=== PATIENT | male | born 1955 | race Hispanic/Latino ===

== ENCOUNTER 2018-07-28 15:33 | Emergency (ER) | payer OTHER ==
[~2018-07-28 15:33] MED LIST: ISOVUE-370 76%-LOCM 1 ML ONE
[2018-07-28 16:42] LABS: #Basophils 0.1 thou/uL (0.0-0.2); #Eosinphils 0.1 thou/uL (0.0-0.7); #Lymphocytes 1.9 thou/uL (1.20-3.40); #Monocytes 0.5 thou/uL (0.11-0.59); #Neutrophils 5.3 thou/uL (1.40-6.50); %Eosinophils 1.1 % (0.0-10.0); %Lymphocytes 24.5 % (21.0-51.0); %Monocytes 5.8 % (0.0-10.0); %Neutrophils 67.7 % (42.0-75.0); Hemoglobin 18.2 g/dL (14.0-18.0); Mean Corpuscular Hemoglobin 30.9 pg (27.0-31.0); Mean Corpuscular Volume 90.9 fL (78.0-98.0); Mean Platelet Volume 7.9 fL (7.4-10.4); Platelet Count 202 thou/uL (130-400); RBC Distribution Width 12.2 % (11.5-14.5); Red Blood Cell (RBC) Count 5.89 mill/uL (4.70-6.10); White Blood Cell (WBC) Count 7.9 thou/uL (4.8-10.8)
[2018-07-28] MEDS ORDERED: Ondansetron PF 4 MG/2 ML Vial ONE (16:42)
[2018-07-28] MEDS ORDERED: Morphine 4 MG/ML VIAL ONE (16:45)
[2018-07-28 16:56] LABS: ALT (SGPT) 26 U/L (8-55); AST (SGOT) 21 U/L (5-34); Albumin 4.2 g/dL (3.4-4.8); Alkaline Phosphatase 94 U/L (40-150); Anion Gap 11 mmol/L (10-20); BUN (Urea Nitrogen) 10 mg/dL (8.4-25.7); Bilirubin, Total 1.3 mg/dL (0.2-1.2); Calc. Creatinine Clearance 0 mL/min (70-130); Calcium 9.6 mg/dL (7.8-10.44); Carbon Dioxide 28 mmol/L (23-31); Chloride 98 mmol/L (98-107); Estimated GFR-MDRD Greater than 90; Globulin 3.4 g/dL (2.4-3.5); Glucose 204 mg/dL (80-115); Potassium 3.6 mmol/L (3.5-5.1); Protein, Total 7.6 g/dL (5.8-8.1); Sodium 133 mmol/L (136-145)
--- NOTE | 2018-07-28 17:18 | CT ---
CT ANGIOGRAM CHEST WITH CONTRAST CT ANGIOGRAM ABDOMEN WITH CONTRAST: Date: 07/28/18 HISTORY: Chest pain. Back pain. Dissection protocol. COMPARISON: None. TECHNIQUE: CT angiogram of the chest and abdomen performed after the intravenous administration of contrast. 3D rendering provided. FINDINGS: There is no aortic dissection. No aneurysmal dilatation of the aorta. Pulmonary trunk size is normal. No pericardial effusion. Heart size upper limits of normal. Lungs are clear. No pneumothorax. No effusion. No suspicious pulmonary nodule. At L5-S1, there is anterolisthesis, 3 mm, with a broad based posterior disc osteophyte complex. There is also broad based posterior disc osteophyte complex at L4-5 with moderate neural foraminal narrowi ng. Sternum and manubrium are intact. Celiac trunk and superior mesenteric arteries are patent, as well a s the inferior mesenteric artery. There is diffuse hepatic steatosis. The spleen is unremarkable, as well as are the pancreas and gallb ladder. No dilated loops of large or small bowel. The appendix is visualized and is normal. No retroperitoneal adenopathy. IMPRESSION: 1. No evidence for aortic dissection nor aneurysmal dilatation of the aorta. 2. No acute intrathoracic or intra-abdominal abnormality. 3. Diffuse hepatic steatosis. 4. Advanced degenerative changes of the lumbar spine. POS: [facility]
== END 2018-07-28 18:18 | disposition home or self-care (01) ==
LOC: ERS 15:33
DX: M54.5 Low back pain (principal); I10 Essential (primary) hypertension; E11.9 Type 2 diabetes mellitus without complications; E78.5 Hyperlipidemia, unspecified; Z79.4 Long term (current) use of insulin; Z87.891 Personal history of nicotine dependence; Z79.899 Other long term (current) drug therapy
CPT/HCPCS: 71275; 80053; 83605; 84484; 85025; 93005; 96374; 96375; J2270; J2405; J3490; Q9966

== ENCOUNTER 2018-08-13 07:53 | Observation (INO) | payer OTHER ==
--- NOTE | 2018-08-12 14:16 | HP ---
HISTORY OF PRESENT ILLNESS: Mr. Rollins is a pleasant 63-year-old man, who presents for evaluation of profound left lower extremity pain both anterior and posterior, most significant posteriorly in a mostly L5 fashion. He has an MRI from [facility] to reveal severe lateral recess stenosis and foraminal stenosis from L3 all the way down to L5 on the left that would fit the symptoms. He has treated with therapy and medications to no avail and distress to a point where he is willing to pursue anything necessary to rid him of his pain. PAST MEDICAL HISTORY: Significant for hypercholesterolemia, diabetes, and hypertension. PAST SURGICAL HISTORY: No surgical history. MEDICATIONS: 1. Tramadol. 2. Meloxicam. 3. Flexeril. 4. Aspirin. 5. Hydrochlorothiazide. 6. Benazepril. 7. Simvastatin. 8. Metformin. 9. Glyburide. 10. Gabapentin. 11. Tylenol #3. ALLERGIES: NO KNOWN DRUG ALLERGIES. PHYSICAL EXAMINATION: GENERAL: The patient is lying on his back in clinic given the severe pain that he has and he has a positive left straight leg raise. ASSESSMENT: Lumbar radiculopathy. PLAN: Dr. Bass met the patient, reviewed imaging, advocated for left L4-5 decompression. He explained to the patient the risks, benefits, and alternatives to the procedure. The patient expressed understanding and elected to move forward with surgery as discussed. I do believe the patient is mentally competent capable of making medical decisions for himself and we will move forward with surgery as planned. Job ID: [id number]
[2018-08-13] MEDS ORDERED: PROPOFOL 200 MG/20 ML VIAL ONE (10:23)
[2018-08-13] MEDS ORDERED: Lidocaine 1% PF 5 ML VIAL ONE (10:23)
[2018-08-13] MEDS ORDERED: Ondansetron PF 4 MG/2 ML Vial ONE (10:23)
[2018-08-13] MEDS ORDERED: Rocuronium Bromide 10 MG/ML (10ML VIAL) ONE (10:23)
[2018-08-13] MEDS ORDERED: Dexamethasone 20 MG/5 ML VIAL ONE (10:23)
[2018-08-13] MEDS ORDERED: Glycopyrrolate 0.2 MG/ML 5 ML SYRINGE ONE (10:23)
[2018-08-13] MEDS ORDERED: Bupivacaine HCl 0.5%/Epinephrine 1:200,000/PF 30 ml Vial ONE (10:40)
[2018-08-13] MEDS ORDERED: Fentanyl 100 MCG/2 ML VIAL ONE ×3 (11:00→12:58)
[2018-08-13] MEDS ORDERED: Promethazine HCl 25 MG/ML VIAL ONE (12:37)
[2018-08-13] MEDS ORDERED: Cyclobenzaprine 10 MG TAB ONE (15:21)
[2018-08-13] MEDS ORDERED: Morphine 4 MG/ML VIAL SLOW IVP PRN ×2 (16:56→17:03)
[2018-08-13] MEDS ORDERED: Bisacodyl 10 MG SUPP PR PRN (16:56)
[2018-08-13] MEDS ORDERED: diphenhydrAMINE 50 MG/ML VIAL IVP PRN (16:56)
[2018-08-13] MEDS ORDERED: Mag-Al 1200 mg/1200 mg/30 ML UDCUP PO PRN (16:56)
[2018-08-13] MEDS ORDERED: Cyclobenzaprine 10 MG TAB PO PRN (16:56)
[2018-08-13] MEDS ORDERED: Acetaminophen 325 MG TAB PO PRN (16:56)
[2018-08-13] MEDS ORDERED: Acetaminophen/Codeine 30-300mg Tablet PO PRN (16:56)
[2018-08-13] MEDS ORDERED: Acetaminophen 650 MG Suppository PR PRN (16:56)
[2018-08-13] MEDS ORDERED: diphenhydrAMINE 25 MG CAP PO PRN (16:56)
[2018-08-13] MEDS ORDERED: Ondansetron PF 4 MG/2 ML Vial IVP PRN (16:58)
[2018-08-13 17:07] VITALS: BMI 29.5
[2018-08-13] MEDS ORDERED: Insulin Regular 300 UNITS/3 ML VIAL SC PRN (17:58)
[2018-08-13] MEDS: Sodium Chloride 0.9% 1,000 ML IV SCH (19:18)
[2018-08-13] MEDS ORDERED: Atorvastatin Calcium 10 MG TAB PO SCH (21:00)
[2018-08-13] MEDS ORDERED: Insulin Glargine 20 UNITS in Pre-Filled Syringe 1 EACH SC SCH (21:00)
[2018-08-13] MEDS: CEFAZOLIN 2 GM in Premix Bag 1 BAG IVPB SCH (21:12)
[2018-08-13] MEDS: Acetaminophen/Codeine 30-300mg Tablet PO PRN (22:30)
[2018-08-14] MEDS: Acetaminophen/Codeine 30-300mg Tablet PO PRN (04:30)
[2018-08-14] MEDS ORDERED: Tamsulosin HCl 0.4 MG CAP PO SCH (06:00)
[2018-08-14] MEDS: CEFAZOLIN 2 GM in Premix Bag 1 BAG IVPB SCH (06:28)
[2018-08-14] MEDS: Sodium Chloride 0.9% 1,000 ML IV SCH (06:39)
[2018-08-14] MEDS ORDERED: glipiZIDE 10 MG TAB PO SCH ×2 (07:30→09:00)
[2018-08-14] MEDS ORDERED: Acetaminophen/Codeine 30-300mg Tablet PO PRN (07:35)
[2018-08-14] MEDS ORDERED: metFORMIN 500 MG TAB PO SCH (08:00)
[2018-08-14] MEDS: metFORMIN 500 MG TAB PO SCH ×2 (08:46→17:48)
[2018-08-14] MEDS ORDERED: Non-Formulary Item 1 EACH (Cyanocobalamin (Vitamin B-12) [Vitamin B-12] 1,000 MCG) PO SCH (09:00)
[2018-08-14] MEDS ORDERED: Hydrochlorothiazide 25 MG TAB PO SCH ×2 (09:00)
[2018-08-14] MEDS ORDERED: Non-Formulary Item 1 EACH (Hydrochlorothiazide [Hydrochlorothiazide] 12.5 MG) PO SCH (09:00)
[2018-08-14] MEDS ORDERED: Cyanocobalamin (Vitamin B-12) 1,000 MCG TAB PO SCH ×2 (09:00)
[2018-08-14] MEDS ORDERED: BENAZEPRIL HCL PO SCH (09:00)
[2018-08-14] MEDS ORDERED: Non-Formulary Item 1 EACH (Metformin Hcl [Metformin Hcl] 1,000 MG) PO SCH (09:00)
[2018-08-14] MEDS ORDERED: Non-Formulary Item 1 EACH (Cholecalciferol (Vitamin D3) [Vitamin D3] 2,000 UNIT) PO SCH (09:00)
[2018-08-14] MEDS ORDERED: Insulin Regular 300 UNITS/3 ML VIAL SC PRN (12:15)
[2018-08-14 16:29] VITALS: BP 155/84; TEMP 98.1
[2018-08-14] MEDS ORDERED: Simvastatin 20 MG TAB PO SCH (21:00)
[2018-08-14] MEDS ORDERED: Insulin Glargine 20 UNITS in Pre-Filled Syringe 1 EACH SC SCH (21:00)
[2018-08-14] MEDS ORDERED: Atorvastatin Calcium 10 MG TAB PO SCH (21:00)
--- NOTE | 2018-08-15 11:37 | OP ---
DATE OF PROCEDURE: 08/13/2018 [employer] DR[employer] OPERATOR: Mahendra Galeas PA-C. INDICATION: Pain. DIAGNOSIS: Left L5 radiculopathy. PROCEDURE PERFORMED: Left L4-L5 decompression. ANESTHESIA: General. DESCRIPTION OF PROCEDURE: The patient was brought into the operating room and placed under general anesthesia. He was flipped from the supine to prone position on the operating room table. A linear incision was planned over the L4-L5 segment. After prepping and draping and after preoperative pause, the incision was created. The soft tissues were swept left of midline. Self-retaining retractors were placed in the wound for optimal exposure. After confirming the appropriate level with C-arm fluoroscopy, high-speed cutting drill bit as well as 2, 3, and 4 mm Kerr[place] were used to perform a laminectomy along the inferior aspect of L4 and the superior aspect of L5. The laminectomy was decompressed laterally to encompass the medial aspect of the facet joint. The descending L5 nerve root was well decompressed. The wound was irrigated. Hemostasis was maintained throughout. The wound was then closed in anatomic layers and a pressure dressing was applied. There were no known procedural complications. Job ID: [id number]
== END 2018-08-14 19:29 | disposition home or self-care (01) ==
LOC: SDC 07:53 → SURG A 15:29 → UNDODISOB 16:40
PROVIDERS: ADMIT Neurological Surgery; ATTEND Neurological Surgery
PROC: 01NB0ZZ Release Lumbar Nerve, Open Approach (ICD-10-PCS; principal; 2018-08-13)
DX: M54.16 Radiculopathy, lumbar region (principal); E11.9 Type 2 diabetes mellitus without complications; E78.00 Pure hypercholesterolemia, unspecified; I10 Essential (primary) hypertension; M48.061 Spinal stenosis, lumbar region without neurogenic claudication; Z79.4 Long term (current) use of insulin; Z79.82 Long term (current) use of aspirin; Z79.899 Other long term (current) drug therapy
CPT/HCPCS: 36416; 76000; 96365; 96366; G0378; J0670; J1100; J1815; J1825; J2001; J2405; J2550; J2704; J3010